=== PATIENT | male | born 1955 | race Caucasian/White ===

== ENCOUNTER 2022-03-27 13:12 | Outpatient (CLI) | payer MEDICARE, OTHER, SELFPAY | END 2022-03-27 13:13 | disposition home or self-care (01) | PROVIDERS: PCP Family Medicine; Visit Provider Family Medicine | DX: M51.34 Other intervertebral disc degeneration, thoracic region (principal); M54.14 Radiculopathy, thoracic region | CPT/HCPCS: 62321; Q9966 ==

== ENCOUNTER 2023-01-19 06:35 | Outpatient (CLI) | payer MEDICARE, OTHER, SELFPAY | END 2023-01-19 06:36 | disposition home or self-care (01) | LOC: INJ CL 06:36 | PROVIDERS: PCP Family Medicine; Visit Provider Family Medicine | DX: M54.14 Radiculopathy, thoracic region (principal); M51.34 Other intervertebral disc degeneration, thoracic region | CPT/HCPCS: 62321; J0702; Q9966 ==

== ENCOUNTER 2024-01-25 07:52 | Outpatient (CLI) | payer MEDICARE, OTHER, SELFPAY | END 2024-01-25 07:53 | disposition home or self-care (01) | PROVIDERS: PCP Family Medicine; Visit Provider Family Medicine | DX: M54.14 Radiculopathy, thoracic region (principal); M51.34 Other intervertebral disc degeneration, thoracic region | CPT/HCPCS: 62321; J0702; Q9966 ==

== ENCOUNTER 2024-10-03 07:23 | Outpatient (CLI) | payer MEDICARE, OTHER, SELFPAY | END 2024-10-03 07:24 | disposition home or self-care (01) | LOC: INJ CL 07:24 | PROVIDERS: PCP Family Medicine; Visit Provider Family Medicine | DX: M54.14 Radiculopathy, thoracic region (principal); M51.34 Other intervertebral disc degeneration, thoracic region | CPT/HCPCS: 62321; J0702; Q9966 ==